=== PATIENT | male | born 1965 | race Caucasian/White ===

== ENCOUNTER 2017-02-24 16:58 | Emergency (ER) | payer OTHER ==
--- NOTE | 2017-04-12 07:03 | ER ---
ADMIT: 02/24/2017 RM/LOC: ER [facility] MR#: [id number] [facility] [address] [place] [id number] L[place] [address] Emergency Room Report SEX: M AGE: 51 : 1965 DATE: 02/24/2017 ADDENDUM: This patient comes into the ER because he has pain in his left ribs. He fell off a truck while working on a pivot. He denies any loss of consciousness. He has pain in his left rib area. His lungs are clear. Most of his pain is along the axial line. He has no abdominal pain. His belly is soft. X-ray of his ribs was negative for any fracture. CBC, BMP, UA were normal. He was in quite a bit of pain, which may be concerned. I did a CT scan of his chest, which was negative for any significant findings. DIAGNOSIS: Left rib pain. He was given Percocet and then Toradol and morphine. We taught him how to use an incentive spirometer. He will be discharged with Percocet, and he is to do deep breathing exercises and follow up with Dr. Senior as needed. Please see my T-sheet. KIRAN Castro / Anatoly Marquez MD / rafiq JOB #: [id number] CC: Alin Alves MD, Attending Physician Burton Senior MD, Family Physician
== END 2017-02-24 20:00 | disposition home or self-care (01) ==
LOC: ER 16:58
DX: R07.81 Pleurodynia (principal); Z88.0 Allergy status to penicillin; Z88.1 Allergy status to other antibiotic agents; W01.0XXA Fall on same level from slipping, tripping and stumbling without subsequent striking against object, initial encounter; Y92.69 Other specified industrial and construction area as the place of occurrence of the external cause